=== PATIENT | female | born 1940 | race Caucasian/White ===

== ENCOUNTER 2016-06-02 15:10 | Emergency (ER) | payer MEDICARE, MEDICAID ==
[~2016-06-02] VITALS: Ht 157.5 cm; Wt 63.6 kg
[~2016-06-02 15:10] MED LIST: AMLO-147 PO; ASPI-535 PO; CARB400T4 PO; CELE200C; CLON0.1T14 PO; CLON0.5T4 PO; CLOP300T15 PO; FOLI-49 PO; LABE200T25 PO; LEVO300T PO; ROSU5TAB5 PO; ULT50 PO
[2016-06-02 15:15] VITALS: Ht 157.5 cm; Wt 63.6 kg
[2016-06-02] MEDS ORDERED: ULT50 PO (16:19)
[2016-06-02] MEDS ORDERED: FER325 PO (16:20)
[2016-06-02] MEDS ORDERED: MAGN400O4 PO (16:21)
[2016-06-02] MEDS ORDERED: ASCO500C7 PO (16:21)
[2016-06-02] MEDS ORDERED: DULR PR (16:22)
[2016-06-02] MEDS ORDERED: ACET1TAB40 PO (16:23)
[2016-06-02] MEDS ORDERED: ACET325T33 PO (16:26)
[2016-06-02] MEDS ORDERED: LORA-441 PO (16:27)
[2016-06-02] MEDS ORDERED: KLO5 PO (16:28)
[2016-06-02] MEDS ORDERED: CLOP75TA27 PO (16:29)
[2016-06-02] MEDS ORDERED: CYAN100T PO (16:30)
[2016-06-02] MEDS ORDERED: FOLI-49 PO (16:30)
[2016-06-02] MEDS ORDERED: MELO-109 PO (16:31)
[2016-06-02] MEDS ORDERED: DONE10TA7 PO (16:32)
[2016-06-02] MEDS ORDERED: LEVO25TA59 PO (16:33)
[2016-06-02] MEDS ORDERED: DEXL30CA2 PO (16:35)
[2016-06-02] MEDS ORDERED: LOSA50TA2 PO (16:36)
[2016-06-02] MEDS ORDERED: AMLO-218 PO (16:37)
[2016-06-02] MEDS ORDERED: LABE200T25 PO (16:39)
[2016-06-02] MEDS ORDERED: CALC-143 PO (16:40)
[2016-06-02] MEDS ORDERED: CARB400T PO (16:42)
[2016-06-02] MEDS ORDERED: EPO10ESRD SC (16:44)
[2016-06-02 16:49] LABS: POTASSIUM 3.7 mmol/L (3.5-5.1)
[2016-06-02 16:51] LABS: CREATININE 0.93 mg/dl (0.44-1.00)
[2016-06-02 16:53] LABS: CALCIUM 9.7 mg/dl (8.4-10.2)
[2016-06-02 16:55] LABS: CARBAMAZEPINE (TEGRETOL) 5.1 ug/ml (8.0-12.0)
[2016-06-02] MEDS ORDERED: CARBAMAZEPINE 200 MG TAB PO ONE (18:00)
--- NOTE | 2016-06-02 18:12 | ERD ---
ER Documentation Chief Complaint Date/Time DATE: 06/02/16 TIME: 18:06 Chief Complaint one seizure at [facility] HPI Patient is a 75-year-old female with a known history of seizure disorder. She takes Tegretol 3 times a day for her seizures. There is no history of her missing her medications as she comes from a residential. The seizure today was described as a generalized tonic-clonic seizure did not last for any abnormal period of time. She did not injure herself during the seizure. And she has currently returned back to her baseline neurologically. She has not been recently ill according to the notes. And the patient currently is without complaints. ROS All systems reviewed and are negative except as per history of present illness. Medications Home Meds Reported Medications Epoetin Mitul (Epogen) 10,000 Units/Ml Soln, [address] UNITS SC Q2WKS, VIAL HOLD IF HGB>10.0 FOR ANEMIA 06/02/16 Carbamazepine* (Tegretol Xr*) 400 Mg Tab.sr.12h, 400 MG PO Q8, TAB.SA 06/02/16 Calcium Citrate/Vitamin D (Citracal-Vitamin D 200 MG-250) 1 Each Tablet, 1 EACH PO TID, TAB 06/02/16 Labetalol Hcl* (Labetalol Hcl*) 200 Mg Tablet, 200 MG PO BID, TAB HOLD IF SBP<115 FOR HTN 06/02/16 Amlodipine Besylate* (Norvasc*) 10 Mg Tablet, 10 MG PO DAILY, TAB HOLD IF SBP<115 06/02/16 Losartan Potassium* (Cozaar*) 50 Mg Tablet, 50 MG PO DAILY, #30 TAB HOLD IF SBP<115 FOR HTN 06/02/16 Dexlansoprazole (Dexilant) 30 Mg Richard., 30 MG PO QAM, #30 CAP 06/02/16 Levothyroxine Sodium* (Synthroid*) 25 Mcg Tablet, 25 MCG PO BEFORE BREAKFAST, # 30 TAB 06/02/16 Donepezil* (Aricept*) 10 Mg Tablet, 10 MG PO QHS, TAB 06/02/16 Meloxicam* (Meloxicam*) 7.5 Mg Tablet, 7.5 MG PO DAILY, #30 TAB 06/02/16 Cyanocobalamin* (Vitamin B-12*) 100 Mcg Tablet, 100 MCG PO DAILY, TAB 06/02/16 Folic Acid* (Folic Acid*) 1 Mg Tablet, 1 MG PO DAILY, TAB 06/02/16 Clopidogrel Bisulfate (Clopidogrel) 75 Mg Tablet, 75 MG PO DAILY, #30 TAB 06/02/16 Clonazepam* (Klonopin*) 0.5 Mg Tab, 0.5 MG PO DAILY Y for ANXIETY, TAB 06/02/16 Lorazepam* (Ativan*) 0.5 Mg Tablet, 0.5 MG PO BID, #30 TAB 06/02/16 Acetaminophen* (Tylenol*) 325 Mg Tablet, 650 MG PO Q4H Y for MILD PAIN LEVEL 1-3 , TAB FOR BTP PS 1-5 NTE AND TEMPERATURE >100F 06/02/16 Acetaminophen with Codeine (Acetaminophen-Cod #3 Tablet) 1 Each Tablet, 1 TAB PO Q4H Y for PAIN LEVEL 6-10, #20 TAB 06/02/16 Bisacodyl* (Bisacodyl*) 10 Mg Supp, 10 MG NJ DAILY, SUPP 06/02/16 Magnesium Hydroxide* (Milk Of Magnesia*) 400 Mg/5 Ml Oral.susp, 30 ML PO DAILY, ML 06/02/16 Ascorbic Acid* (Vitamin C*) 500 Mg Capsule.sa, 500 MG PO BID, CAP 06/02/16 Ferrous Sulfate* (Ferrous Sulfate*) 325 Mg Tabec, 325 MG PO BID, TAB 06/02/16 Tramadol HCl (Tramadol HCl) 50 Mg Tablet, 50 MG PO BID, #60 TAB 06/02/16 Discontinued Reported Medications Folic Acid* (Folic Acid*) 1 Mg Tablet, 1 MG PO DAILY, TAB 10/16/13 Clopidogrel Bisulfate* (Plavix*) 300 Mg Tablet, 75 MG PO DAILY, TAB 10/16/13 Carbamazepine* (Carbamazepine* XR) 400 Mg Tab.er.12h, 400 MG PO DAILY 10/16/13 Levothyroxine Sodium (Levothyroxine Sodium) 300 Mcg Tablet, 25 MCG PO AC BREAKFAST 10/16/13 Rosuvastatin Calcium* (Crestor*) 5 Mg Tablet, 10 MG PO HS 10/16/13 Tramadol HCl (Tramadol HCl) 50MG Tab, 50 MG PO Q12, TAB 10/16/13 Amlodipine Besylate* (Amlodipine Besylate*) 10 Mg Tablet, 10 MG PO DAILY, TAB 10/16/13 Labetalol Hcl* (Labetalol Hcl*) 200 Mg Tablet, 200 MG PO BID, TAB 10/16/13 Clonidine Hcl* (Catapres*) 0.1 Mg Tablet, 0.1 MG PO 10/16/13 Clonazepam* (Clonazepam*) 0.5 Mg Tablet, 0.5 MG PO, TAB 10/16/13 Celecoxib* (Celebrex*) 200 Mg Capsule, 200 MG BID, CAP 10/16/13 Aspirin Ec (Aspir 81) 81 Mg Tablet.dr, 81 MG PO DAILY 10/16/13 Allergies Allergies: Coded Allergies: nebivolol (Verified Allergy, Unknown, 06/02/16) PMhx/Soc History of Surgery: Yes (pacemaker 1 year ago) Anesthesia Reaction: No (unknown ) Hx Neurological Disorder: Yes (zeizures) Hx Respiratory Disorders: No (unknown ) Hx Cardiac Disorders: Yes (htn, high chol, pacemaker, chf ischemic cardiomyopathy) Hx Psychiatric Problems: Yes (depression,) Hx Miscellaneous Medical Probl: Yes (OSEOARTHRITIS, DEPRESSION, FREQUENT FALLS) Smoking Status: Never smoker Physical Exam Vitals Vital Signs Date Time Temp Pulse Resp B/P Pulse Ox O2 Delivery O2 Flow Rate FiO2 06/02/16 17:43 98.9 60 22 131/66 99 Room Air 06/02/16 15:30 69 18 133/61 98 Room Air 06/02/16 15:15 99.0 60 18 119/68 98 Physical Exam Const: Well-developed well-nourished female sitting on the bed in no acute distress Head: Atraumatic normocephalic Eyes: Normal Conjunctiva ENT: Normal External Ears, Nose and Mouth. Neck: Full range of motion..~ No meningismus. Resp: Clear to auscultation bilaterally Cardio: Regular rate and rhythm, no murmurs Abd: Soft, non tender, non distended. Normal bowel sounds Skin: No petechiae or rashes Back: No midline or flank tenderness Ext: No cyanosis, or edema Neur: Awake and alert Psych: Normal Mood and Affect Result Diagram: 06/02/16 1600 Results 24 hrs Laboratory Tests Test 06/02/16 16:00 Anion Gap 16 Blood Urea Nitrogen 24mg/dl Calcium Level 9.7mg/dl Carbamazepine (Tegretol) Level 5.1ug/ml Carbon Dioxide Level 27mmol/L Chloride Level 108mmol/L Creatinine 0.93mg/dl Glucose Level 114mg/dl Potassium Level 3.7mmol/L Sodium Level 147mmol/L Current Medications Medications (Trade) Dose Ordered Sig/Raheem Route PRN Reason Start Time Stop Time Status Last Admin Dose Admin Carbamazepine (Tegretol) 200 mg ONCE ONCE PO 06/02/16 18:00 06/02/16 18:01 DC Procedures/MDM 1809: Patient has been observed in our department now for over an hour without any recurrent seizure activity. Her carbamazepine level is subtherapeutic. This more than likely explains why she had a breakthrough seizure. Departure Diagnosis: Primary Impression: Seizure disorder Additional Impression: Seizure secondary to subtherapeutic anticonvulsant medication Condition: Good Patient Instructions: Seizure, Recurrent [Adult] Referrals: CODY BRENNAN Additional Instructions: Please contact the neurologist that she is either been seeing or the one listed on the paperwork to discuss changing her carbamazepine dosages. If she has truly been taking the medication as prescribed it is clearly not enough for her as her level was subtherapeutic. This would explain why she had her breakthrough seizure tonight. She will continue to be at risk for breakthrough seizures if you continue her on this current dosage. Return to the emergency department for any new or worsening symptoms. NGUYỄN HAUSER Jun 02, 2016 18:12
[2016-06-02 20:07] VITALS: BP 122/85; PULSE 65; RESP 20; TEMP 98.9
== END 2016-06-02 20:07 | disposition home or self-care (01) ==
LOC: E/R 15:10
DX: G40.909 Epilepsy, unspecified, not intractable, without status epilepticus (principal); R40.2242 Coma scale, best verbal response, confused conversation, at arrival to emergency department; I10 Essential (primary) hypertension; I50.9 Heart failure, unspecified; R40.2362 Coma scale, best motor response, obeys commands, at arrival to emergency department; R40.2142 Coma scale, eyes open, spontaneous, at arrival to emergency department; Z79.82 Long term (current) use of aspirin; Z95.0 Presence of cardiac pacemaker
CPT/HCPCS: 80048; 80156; 99283

== ENCOUNTER 2016-08-18 04:05 | Emergency (ER) | payer MEDICARE, OTHER ==
[~2016-08-18] VITALS: Ht 160 cm; Wt 58.0 kg
[~2016-08-18 04:05] MED LIST changes: +ACET1TAB40 PO; +ACET325T33 PO; -AMLO-147 PO; +AMLO-218 PO; +ASCO500C7 PO; -ASPI-535 PO; +CALC-143 PO; +CARB400T PO; -CARB400T4 PO; -CELE200C; +CLON-429 PO; -CLON0.1T14 PO; -CLON0.5T4 PO; -CLOP300T15 PO; +CLOP75TA27 PO; +CYAN100T PO; +DEXL30CA2 PO; +DONE10TA7 PO; +DULR PR; +EPO10ESRD SC; +FER325 PO; +LEVO25TA59 PO; -LEVO300T PO; +LORA-441 PO; +LOSA50TA2 PO; +MAGN400O4 PO; +MELO-109 PO; -ROSU5TAB5 PO; +TRAM50TA2 PO; -ULT50 PO
--- NOTE | 2016-08-18 04:15 | ERA ---
ER Documentation Chief Complaint Date/Time DATE: 08/18/16 TIME: 04:14 Chief Complaint fall HPI The patient is a 76-year-old female, presenting to the ER because she fell of her bed. She is unable to provide any history, the history is obtained from the regulatory lead and medical record. Past medical history: Seizure disorder, anemia, hypertension, history of cardiac arrhythmia, CAD, dyslipidemia, dementia Past surgical history: Pacemaker ROS All systems reviewed and are negative except as per history of present illness. Medications Home Meds Reported Medications Epoetin Mitul (Epogen) 10,000 Units/Ml Soln, 22048 UNITS SC Q2WKS, VIAL HOLD IF HGB>10.0 FOR ANEMIA 06/02/16 Carbamazepine* (Tegretol Xr*) 400 Mg Tab.sr.12h, 400 MG PO Q8, TAB.SA 06/02/16 Calcium Citrate/Vitamin D (Citracal-Vitamin D 200 MG-250) 1 Each Tablet, 1 EACH PO TID, TAB 06/02/16 Labetalol Hcl* (Labetalol Hcl*) 200 Mg Tablet, 200 MG PO BID, TAB HOLD IF SBP<115 FOR HTN 06/02/16 Amlodipine Besylate* (Norvasc*) 10 Mg Tablet, 10 MG PO DAILY, TAB HOLD IF SBP<115 06/02/16 Losartan Potassium* (Cozaar*) 50 Mg Tablet, 50 MG PO DAILY, #30 TAB HOLD IF SBP<115 FOR HTN 06/02/16 Dexlansoprazole (Dexilant) 30 Mg Cap., 30 MG PO QAM, #30 CAP 06/02/16 Levothyroxine Sodium* (Synthroid*) 25 Mcg Tablet, 25 MCG PO BEFORE BREAKFAST, # 30 TAB 06/02/16 Donepezil* (Aricept*) 10 Mg Tablet, 10 MG PO QHS, TAB 06/02/16 Meloxicam* (Meloxicam*) 7.5 Mg Tablet, 7.5 MG PO DAILY, #30 TAB 06/02/16 Cyanocobalamin* (Vitamin B-12*) 100 Mcg Tablet, 100 MCG PO DAILY, TAB 06/02/16 Folic Acid* (Folic Acid*) 1 Mg Tablet, 1 MG PO DAILY, TAB 06/02/16 Clopidogrel Bisulfate (Clopidogrel) 75 Mg Tablet, 75 MG PO DAILY, #30 TAB 06/02/16 Clonazepam* (Klonopin*) 0.5 Mg Tab, 0.5 MG PO DAILY Y for ANXIETY, TAB 06/02/16 Lorazepam* (Ativan*) 0.5 Mg Tablet, 0.5 MG PO BID, #30 TAB 06/02/16 Acetaminophen* (Tylenol*) 325 Mg Tablet, 650 MG PO Q4H Y for MILD PAIN LEVEL 1-3 , TAB FOR BTP PS 1-5 NTE AND TEMPERATURE >100F 06/02/16 Acetaminophen with Codeine (Acetaminophen-Cod #3 Tablet) 1 Each Tablet, 1 TAB PO Q4H Y for PAIN LEVEL 6-10, #20 TAB 06/02/16 Bisacodyl* (Bisacodyl*) 10 Mg Supp, 10 MG SD DAILY, SUPP 06/02/16 Magnesium Hydroxide* (Milk Of Magnesia*) 400 Mg/5 Ml Oral.susp, 30 ML PO DAILY, ML 06/02/16 Ascorbic Acid* (Vitamin C*) 500 Mg Capsule.sa, 500 MG PO BID, CAP 06/02/16 Ferrous Sulfate* (Ferrous Sulfate*) 325 Mg Tabec, 325 MG PO BID, TAB 06/02/16 Tramadol HCl (Tramadol HCl) 50 Mg Tablet, 50 MG PO BID, #60 TAB 06/02/16 Allergies Allergies: Coded Allergies: nebivolol (Verified Allergy, Unknown, 06/02/16) PMhx/Soc History of Surgery: Yes (pacemaker 1 year ago) Anesthesia Reaction: No (unknown ) Hx Neurological Disorder: Yes (zeizures) Hx Respiratory Disorders: No (unknown ) Hx Cardiac Disorders: Yes (htn, high chol, pacemaker, chf ischemic cardiomyopathy) Hx Psychiatric Problems: Yes (depression,) Hx Miscellaneous Medical Probl: Yes (OSEOARTHRITIS, DEPRESSION, FREQUENT FALLS) Physical Exam Vitals Vital Signs Date Time Temp Pulse Resp B/P Pulse Ox O2 Delivery O2 Flow Rate FiO2 08/18/16 06:12 83 22 155/63 98 Room Air 08/18/16 04:30 60 25 151/63 98 Room Air 08/18/16 04:17 98.2 60 18 170/74 98 Physical Exam Const: No acute distress. Head: Atraumatic. Eyes: Normal Conjunctiva. ENT: Normal External Ears, Nose and Mouth. Right eyebrow 2 cm laceration with mild bleeding. Right periorbital ecchymosis Neck: Full range of motion. No meningismus. Resp: Clear to auscultation bilaterally. Cardio: Regular rate and rhythm, no murmurs. Abd: Soft, non distended, normal bowel sounds, non tender. Skin: No petechiae or rashes. Back: No midline or flank tenderness. Ext: No cyanosis, or edema. Neur: Awake and alert. No focal deficit Psych: Normal Mood and Affect. Result Diagram: 08/18/16 0418 08/18/16 0530 Results 24 hrs Laboratory Tests Test 08/18/16 04:18 08/18/16 05:30 White Blood Count 10.310^3/ul Red Blood Count 2.7810^6/ul Hemoglobin 9.5g/dl Hematocrit 28.8% Mean Corpuscular Volume 103.6fl Mean Corpuscular Hemoglobin 34.2pg Mean Corpuscular Hemoglobin Concent 33.0g/dl Red Cell Distribution Width 14.1% Platelet Count 44524^3/UL Mean Platelet Volume 9.9fl Neutrophils % 81.8% Lymphocytes % 8.7% Monocytes % 6.5% Eosinophils % 2.4% Basophils % 0.2% Nucleated Red Blood Cells % 0.0/100WBC Neutrophils # 8.410^3/ul Lymphocytes # 0.910^3/ul Monocytes # 0.710^3/ul Eosinophils # 0.310^3/ul Basophils # 0.010^3/ul Nucleated Red Blood Cells # 0.010^3/ul Prothrombin Time 13.5Sec Prothrombin Time Ratio 1.1 INR International Normalized Ratio 1.03 Activated Partial Thromboplast Time 30.5Sec Sodium Level 142mmol/L Potassium Level 3.9mmol/L Chloride Level 106mmol/L Carbon Dioxide Level 25mmol/L Anion Gap 15 Blood Urea Nitrogen 24mg/dl Creatinine 0.79mg/dl Glucose Level 104mg/dl Calcium Level 9.4mg/dl Current Medications Medications (Trade) Dose Ordered Sig/Raheem Route PRN Reason Start Time Stop Time Status Last Admin Dose Admin Diphtheria/ Tetanus/Acell Pertussis (Adacel) 0.5 ml ONCE ONCE IM* 08/18/16 04:30 08/18/16 04:31 DC 08/18/16 06:07 Lidocaine/ Epinephrine (Xylocaine 1%/ Epi (Mdv) 20 ml) 20 ml ONCE STAT INJ 08/18/16 04:18 08/18/16 04:21 DC Procedures/MDM [place] [address] Radiology Main Line: [phone] DIAGNOSTIC IMAGING REPORT Patient: JORGE LUIS CRYSTAL : 1940 Age: 76 Sex: F MR #: [id number] DOS: 08/18/16 0000 Ordering MD: STEPHIE NICHOLE MD Location: E/R Room/Bed: PROCEDURE: Chest. CLINICAL INDICATION: Chest pain. TECHNIQUE: Single frontal view of the chest was obtained. COMPARISON: 10/16/2013. FINDINGS: There is a left-sided pacemaker. The cardiac silhouette is within normal limits. The aortic arch is calcified. There is no focal consolidation, vascular congestion or pleural effusion. There is no pneumothorax. Cervical fusion hardware is present. IMPRESSION: No evidence for active cardiopulmonary disease. Aortic atherosclerosis. .Santiago Brooke MD, MD Date Time Electronically viewed and signed by .Santiago Brooke MD, MD on 08/18/2016 05:46 .T/ CC: STEPHIE NICHOLE MD [place] [address] Radiology Main Line: [phone] DIAGNOSTIC IMAGING REPORT Patient: JORGE LUIS CRYSTAL : 1940 Age: 76 Sex: F MR #: [id number] DOS: 08/18/16 0418 Ordering MD: STEPHIE NICHOLE MD Location: E/R Room/Bed: PROCEDURE: CT facial bones without contrast. CLINICAL INDICATION: Injury and pain. TECHNIQUE: CT scan of the facial bones was performed on a multi-detector high -resolution CT scanner. Contiguous axial images were obtained without intravenous contrast. Coronal and sagittal reformatted images were also obtained. Images were reviewed on the PACS workstation. One or more of the following dose reduction techniques were used: - Automated exposure control. - Adjustment of the mA and/or kV according to patient size. - Use of iterative reconstruction technique. Exam CTD/vol = 29.46 mGy. Total exam DLP = 544.06 mGy-cm. COMPARISON: None. FINDINGS: There is right frontal scalp and periorbital soft tissue swelling and hematoma. There is no acute fracture. The nasal bones are intact. Bilateral orbital rims, zygoma and zygomatic arches are intact. The pterygoid plates are intact. The mandible and maxilla are within normal limits. Bilateral temporomandibular joints are within normal limits. There is mild mucoperiosteal disease within the right posterior ethmoid air cell. There are no air-fluid levels. Bilateral orbital globes are symmetric and within normal limits. The extraocular muscles are symmetric and of normal caliber. Preseptal spaces are within normal limits. Retrobulbar fat are clear. Bilateral optic nerves and superior ophthalmic veins are within normal limits. IMPRESSION: No evidence of fracture. Right frontal scalp and periorbital soft tissue swelling and hematoma. .Santiago Brooke MD, MD Date Time Electronically viewed and signed by .Santiago Brooke MD, MD on 08/18/2016 05:18 .T/ CC: STEPHIE NICHOLE MD [place] [address] Radiology Main Line: [phone] DIAGNOSTIC IMAGING REPORT Patient: JORGE LUIS CRYSTAL : 1940 Age: 76 Sex: F MR #: [id number] DOS: 08/18/16 0418 Ordering MD: STEPHIE NICHOLE MD Location: E/R Room/Bed: PROCEDURE: CT Cervical Spine without contrast. CLINICAL INDICATION: Injury and pain. TECHNIQUE: CT scan of the cervical spine was performed on a multi-detector high-resolution CT scanner. Contiguous axial images were obtained without intravenous contrast. Coronal and sagittal reformatted images were also obtained. Images were reviewed on the PACS workstation. One or more of the following dose reduction techniques were used: - Automated exposure control. - Adjustment of the mA and/or kV according to patient size. - Use of iterative reconstruction technique. Exam CTD/vol = 22.16 mGy. Total exam DLP = 447.22 mGy-cm. COMPARISON: None. FINDINGS: There is no acute fracture or subluxation. The patient is status post fusion with anterior plate and screws from C5 through C7. There is straightening of the cervical lordosis. Cervical vertebral body heights and alignment are otherwise within normal limits. The craniovertebral junction is within normal limits. Remaining intervertebral disk spaces are within normal limits. There is no central canal or neural foraminal stenosis. There is no paraspinal mass or collection. IMPRESSION: No acute fracture or subluxation. Status post ACDF from C5 through C7. .Santiago Brooke MD, MD Date Time Electronically viewed and signed by .Santiago Brooke MD, MD on 08/18/2016 05:24 .T/ CC: STEPHIE NICHOLE MD [place] [address] Radiology Main Line: [phone] DIAGNOSTIC IMAGING REPORT Patient: JORGE LUIS CRYSTAL : 1940 Age: 76 Sex: F MR #: [id number] DOS: 08/18/16 0418 Ordering MD: STEPHIE NICHOLE MD Location: E/R Room/Bed: PROCEDURE: CT brain without contrast. CLINICAL INDICATION: Injury and pain. TECHNIQUE: CT scan of the brain was performed on a multi-detector high- resolution CT scanner. Contiguous axial images were obtained from the skull base to the vertex without intravenous contrast. Coronal and sagittal reformatted images were also obtained. Images were reviewed on the PACS workstation. One or more of the following dose reduction techniques were used: - Automated exposure control. - Adjustment of the mA and/or kV according to patient size. - Use of iterative reconstruction technique. Exam CTD/vol = 44.81 mGy. Total exam DLP = 720.23 mGy-cm. COMPARISON: None. FINDINGS: The ventricles and cortical sulci are prominent consistent with mild age related volume loss. There are patchy areas of low attenuation within the periventricular white matter consistent with mild chronic ischemic changes secondary to small vessel disease. There is an old infarct within the right posterior frontal lobe. There is a chronic lacunar infarct within the genu of the left internal capsule. There is no mass effect or midline shift. There is no intracranial hemorrhage or abnormal extra-axial collection. There are atherosclerotic calcifications within bilateral distal internal carotid arteries. There is right frontal scalp and periorbital soft tissue swelling and hematoma. The calvarium is intact. There is no evidence of fracture. Visualized paranasal sinuses and mastoid air cells are clear. IMPRESSION: No acute intracranial abnormality identified. Mild age related volume loss and chronic ischemic white matter disease. Old right frontal lobe infarct. Chronic lacunar infarct within the left internal capsule. Cerebral atherosclerosis. Right frontal scalp and periorbital soft tissue swelling and hematoma. .Santiago Brooke MD, MD Date Time Electronically viewed and signed by .Santiago Brooke MD, MD on 08/18/2016 05:15 .T/ CC: STEPHIE NICHOLE MD MEDICAL MAKING DECISION: The patient is a 76-year-old female, presenting with acute facial laceration, acute right periorbital ecchymosis. The differential diagnoses considered include but are not limited to subarachnoid hemorrhage, occult trauma, CVA, meningitis, encephalitis, hypertension, tension, migraine, cluster, narcotic withdrawal, cervical spine disease. Laceration Repair by me: Anesthesia: 1% lidocaine locally Location: Right eyebrow Tendon/Joint/Nerves: No injury Foreign body: None detected after copious irrigation and exploration Technique: Simple Interrupted Sutures Complexity: No subcutaneous sutures/mucosal repair/ edge excision Post Closure Length: Two cm Patient's bleeding was easily controlled in the department and there is no indication of anemia. No evidence of compartment syndrome, neurologic injury, vascular injury, open joint, tendon laceration, or foreign body. Patient is appropriate for outpatient follow up. 48 hour wound check. Scar minimization instructions given. She was treated with Tdap IM Departure Diagnosis: Primary Impression: Facial laceration Additional Impression: Periorbital ecchymosis of right eye Condition: Good Comments He was advised to return two day for wound check, 5 days for suture removal, sooner if any concern STEPHIE NICHOLE MD Aug 18, 2016 04:14
[2016-08-18 04:17] VITALS: Ht 160 cm; Wt 58.0 kg
[2016-08-18] MEDS ORDERED: LIDOCAINE 1%/EPI (MDV) 20 ML INJ INJ STA (04:18)
[2016-08-18] MEDS ORDERED: DIPHTH/TET/ACEL PERTUSS (ADULT) 0.5 ML VIAL IM* ONE (04:30)
--- NOTE | 2016-08-18 05:15 | RADRPT ---
PROCEDURE: CT brain without contrast. CLINICAL INDICATION: Injury and pain. TECHNIQUE: CT scan of the brain was performed on a multi-detector high-resolution CT scanner. Co ntiguous axial images were obtained from the skull base to the vertex without intravenous contrast. Coronal and sagittal reformatted images were also obtained. Images were reviewed on the PACS works tation. One or more of the following dose reduction techniques were used: - Automated exposure control. - Adjustment of the mA and/or kV according to patient size. - Use of iterative reconstruction technique. Exam CTD/vol = 44.81 mGy. Total exam DLP = 720.23 mGy-cm. COMPARISON: None. FINDINGS: The ventricles and cortical sulci are prominent consistent with mild age related volume loss. There are patchy areas of low attenuation within the periventricular white matter consistent with mild ch ronic ischemic changes secondary to small vessel disease. There is an old infarct within the right posterior frontal lobe. There is a chronic lacunar infarct within the genu of the left internal cap yuli. There is no mass effect or midline shift. There is no intracranial hemorrhage or abnormal ex tra-axial collection. There are atherosclerotic calcifications within bilateral distal internal longo tid arteries. There is right frontal scalp and periorbital soft tissue swelling and hematoma. The calvarium is in tact. There is no evidence of fracture. Visualized paranasal sinuses and mastoid air cells are gonzalez ar. IMPRESSION: No acute intracranial abnormality identified. Mild age related volume loss and chronic ischemic white matter disease. Old right frontal lobe infarct. Chronic lacunar infarct within the left internal capsule. Cerebral atherosclerosis. Right frontal scalp and periorbital soft tissue swelling and hematoma. .Santiago Brooke MD, MD Date Time Electronically viewed and signed by .Santiago Brooke MD, MD on 08/18/2016 05:15 .T/
--- NOTE | 2016-08-18 05:19 | RADRPT ---
PROCEDURE: CT facial bones without contrast. CLINICAL INDICATION: Injury and pain. TECHNIQUE: CT scan of the facial bones was performed [facility] Contiguous axial images were obtained without intravenous contrast. Coronal and sagittal refor matted images were also obtained. Images were reviewed on the PACS workstation. One or more of the following dose reduction techniques were used: - Automated exposure control. - Adjustment of the mA and/or kV according to patient size. - Use of iterative reconstruction technique. Exam CTD/vol = 29.46 mGy. Total exam DLP = 544.06 mGy-cm. COMPARISON: None. FINDINGS: There is right frontal scalp and periorbital soft tissue swelling and hematoma. There is no acute f racture. The nasal bones are intact. Bilateral orbital rims, zygoma and zygomatic arches are intac t. The pterygoid plates are intact. The mandible and maxilla are within normal limits. Bilateral t emporomandibular joints are within normal limits. There is mild mucoperiosteal disease within the r ight posterior ethmoid air cell. There are no air-fluid levels. Bilateral orbital globes are symmetric and within normal limits. The extraocular muscles are symmet rayshawn and of normal caliber. Preseptal spaces are within normal limits. Retrobulbar fat are clear. Bilateral optic nerves and superior ophthalmic veins are within normal limits. IMPRESSION: No evidence of fracture. Right frontal scalp and periorbital soft tissue swelling and hematoma. .Santiago Brooke MD, MD Date Time Electronically viewed and signed by .Santiago Brooke MD, MD on 08/18/2016 05:18 .T/
--- NOTE | 2016-08-18 05:25 | RADRPT ---
PROCEDURE: CT Cervical Spine without contrast. CLINICAL INDICATION: Injury and pain. TECHNIQUE: CT scan of the cervical spine was performed on a multi-detector high-resolution CT [facility]. Contiguous axial images were obtained without intravenous contrast. Coronal and sagittal ref ormatted images were also obtained. Images were reviewed on the PACS workstation. One or more of the following dose reduction techniques were used: - Automated exposure control. - Adjustment of the mA and/or kV according to patient size. - Use of iterative reconstruction technique. Exam CTD/vol = 22.16 mGy. Total exam DLP = 447.22 mGy-cm. COMPARISON: None. FINDINGS: There is no acute fracture or subluxation. The patient is status post fusion with anterior plate an d screws from C5 through C7. There is straightening of the cervical lordosis. Cervical vertebral b [place]ilda [place] and alignment are otherwise within normal limits. The craniovertebral junction is withi n normal limits. Remaining intervertebral disk spaces are within normal limits. There is no centra l canal or neural foraminal stenosis. There is no paraspinal mass or collection. IMPRESSION: No acute fracture or subluxation. Status post ACDF from C5 through C7. .Santiago Brooke MD, MD Date Time Electronically viewed and signed by .Santiago Brooke MD, MD on 08/18/2016 05:24 .T/
[2016-08-18 05:40] LABS: ADD SCAN DIFF NO; BASOPHILS % 0.2 % (0.0-2.0); EOSINOPHILS # 0.3 10^3/ul (0.0-0.5); EOSINOPHILS % 2.4 % (0.0-7.0); HEMATOCRIT 28.8 % (37.0-47.0); HEMOGLOBIN 9.5 g/dl (12.0-16.0); LYMPHOCYTES # 0.9 10^3/ul (0.8-2.9); LYMPHOCYTES % 8.7 % (15.0-51.0); MEAN CORPUSCULAR HEMOGLOBIN 34.2 pg (29.0-33.0); MEAN CORPUSCULAR VOLUME 103.6 fl (82.0-101.0); MEAN PLATELET VOLUME 9.9 fl (7.4-10.4); MONOCYTE # 0.7 10^3/ul (0.3-0.9); MONOCYTES % 6.5 % (0.0-11.0); NEUTROPHIL # 8.4 10^3/ul (1.6-7.5); NEUTROPHILS % 81.8 % (39.0-77.0); PLATELET COUNT 313 10^3/UL (140-415); RED BLOOD COUNT 2.78 10^6/ul (4.20-5.40); RED CELL DISTRIBUTION WIDTH 14.1 % (11.5-14.5); WHITE BLOOD COUNT 10.3 10^3/ul (4.8-10.8)
--- NOTE | 2016-08-18 05:46 | RADRPT ---
PROCEDURE: Chest. CLINICAL INDICATION: Chest pain. TECHNIQUE: Single frontal view of the chest was obtained. COMPARISON: 10/16/2013. FINDINGS: There is a left-sided pacemaker. The cardiac silhouette is within normal limits. The aortic arch i s calcified. There is no focal consolidation, vascular congestion or pleural effusion. There is no pneumothorax. Cervical fusion hardware is present. IMPRESSION: No evidence for active cardiopulmonary disease. Aortic atherosclerosis. .Santiago Brooke MD, Date Time Electronically viewed and signed by .Santiago Brooke MD, on 08/18/2016 05:46 .T/
[2016-08-18 05:53] LABS: INR 1.03; PROTIME 13.5 Sec (12.2-14.2); PT RATIO 1.1
[2016-08-18 05:54] LABS: PARTIAL THROMBOPLASTIN TIME 30.5 Sec (25.0-35.0)
[2016-08-18 06:17] LABS: POTASSIUM 3.9 mmol/L (3.5-5.1)
[2016-08-18 06:19] LABS: CREATININE 0.79 mg/dl (0.44-1.00)
[2016-08-18 06:20] LABS: CALCIUM 9.4 mg/dl (8.4-10.2)
[2016-08-18 09:57] VITALS: BP 125/79; PULSE 80; RESP 18; TEMP 97.9
== END 2016-08-18 09:57 | disposition home or self-care (01) ==
LOC: E/R 04:05
DX: S01.81XA Laceration without foreign body of other part of head, initial encounter (principal); S05.11XA Contusion of eyeball and orbital tissues, right eye, initial encounter; I10 Essential (primary) hypertension; I25.10 Atherosclerotic heart disease of native coronary artery without angina pectoris; I50.9 Heart failure, unspecified; W06.XXXA Fall from bed, initial encounter; Y92.9 Unspecified place or not applicable; Z23 Encounter for immunization; Z95.0 Presence of cardiac pacemaker
CPT/HCPCS: 70450; 70486; 71010; 72125; 80048; 85025; 85610; 85730; 90471; 90715